=== PATIENT | female | born 1935 | race Caucasian/White ===

== ENCOUNTER → 2017-07-04 | Outpatient (REF) | payer MEDICARE, OTHER ==
[2017-07-04 17:07] LABS: HEMATOCRIT 31.4 % (36.0-47.0); HEMOGLOBIN 10.9 g/dl (12.0-16.0); MEAN CORPUSCULAR HEMOGLOBIN 30.5 pg (27.0-33.0); MEAN CORPUSCULAR HGB CONC 34.7 g/dl (32.0-36.5); PLATELET COUNT, AUTOMATED 139 10^3/uL (150-450); RED BLOOD COUNT 3.57 10^6/uL (4.00-5.40); WHITE BLOOD COUNT 3.7 10^3/uL (4.0-10.0)
[2017-07-04 17:10] LABS: ADD MANUAL DIFFER YES; DIFF SLIDE NUMBER 247; POSITIVE MORPH POS FLAG
[2017-07-04 17:37] LABS: ANION GAP 6 MEQ/L (8-16); BLOOD UREA NITROGEN 11 MG/DL (7-18); CALCIUM LEVEL 8.4 MG/DL (8.8-10.2); CARBON DIOXIDE LEVEL 29 MEQ/L (21-32); CHLORIDE LEVEL 95 MEQ/L (98-107); CREATININE FOR GFR 0.43 MG/DL (0.55-1.30); GLOMERULAR FILTRATION RATE > 60.0 (>32); GLUCOSE, FASTING 165 MG/DL (70-100); POTASSIUM SERUM 4.7 MEQ/L (3.5-5.1); SODIUM LEVEL 130 MEQ/L (136-145)
[2017-07-04 20:11] LABS: ATYPICAL LYMPH 1 % (0-5); EOSINOPHILS 1 % (0-5); LYMPHOCYTES 21 % (16-52); MONOCYTES 6 % (0-8); NEUTROPHILS 71 % (35-75)
[2017-07-04 20:12] LABS: BURR CELLS 1+
[2017-07-04 20:13] LABS: PLATELET ESTIMATE DECREASED (NORMAL)
== END ==
LOC: M SFHCLERA 12:41
DX: R19.7 Diarrhea, unspecified (principal); T30.0 Burn of unspecified body region, unspecified degree
CPT/HCPCS: 80048

== ENCOUNTER → 2017-07-11 | Outpatient (REF) | payer MEDICARE, OTHER ==
[2017-07-11 17:05] LABS: ANION GAP 6 MEQ/L (8-16); BLOOD UREA NITROGEN 22 MG/DL (7-18); CALCIUM LEVEL 9.2 MG/DL (8.8-10.2); CARBON DIOXIDE LEVEL 31 MEQ/L (21-32); CHLORIDE LEVEL 96 MEQ/L (98-107); CREATININE FOR GFR 0.55 MG/DL (0.55-1.30); GLOMERULAR FILTRATION RATE > 60.0 (>32); GLUCOSE, FASTING 139 MG/DL (70-100); POTASSIUM SERUM 4.8 MEQ/L (3.5-5.1); SODIUM LEVEL 133 MEQ/L (136-145)
[2017-07-11 17:08] LABS: BASO % 0.5 % (0.0-1.0); EOS % 0.4 % (0.0-3.0); HEMATOCRIT 35.2 % (36.0-47.0); HEMOGLOBIN 11.9 g/dl (12.0-16.0); IMMATURE GRANULOCYTE % 0.4 % (0-3.0); LYMPH # 1.1 10^3/uL (1.5-4.5); LYMPH % 14.2 % (24.0-44.0); MEAN CORPUSCULAR HEMOGLOBIN 30.7 pg (27.0-33.0); MEAN CORPUSCULAR HGB CONC 33.8 g/dl (32.0-36.5); MEAN CORPUSCULAR VOLUME 90.7 fl (80.0-96.0); MONO # 0.6 10^3/uL (0.0-0.8); MONO % 7.5 % (0.0-5.0); NEUTROPHILS # 5.9 10^3/uL (1.8-7.7); PLATELET COUNT, AUTOMATED 310 10^3/uL (150-450); RED BLOOD COUNT 3.88 10^6/uL (4.00-5.40); RED CELL DISTRIBUTION WIDTH 12.3 % (11.5-14.5); WHITE BLOOD COUNT 7.6 10^3/uL (4.0-10.0)
== END ==
LOC: M SFHCLERA 16:07
DX: T30.0 Burn of unspecified body region, unspecified degree (principal); R19.7 Diarrhea, unspecified
CPT/HCPCS: 80048

== ENCOUNTER → 2017-08-20 | Outpatient (REF) | payer MEDICARE, OTHER ==
[2017-08-20 17:29] LABS: ESTIMATED AVERAGE GLUCOSE 160 MG/DL (60-110); HEMOGLOBIN A1c 7.2 %
[2017-08-20 17:45] LABS: CHOLESTEROL LEVEL 137 MG/DL (<200); CHOLESTEROL RISK RATIO 3.186 (<5); HDL CHOLESTEROL 43 MG/DL (>40); NON-HDL-C 94 MG/DL; TRIGLYCERIDES LEVEL 140 MG/DL (<150)
[2017-08-20 17:48] LABS: CREATININE, URINE 32.9 MG/DL; MALB URINE SIEMENS 5.7 MG/L; MAU/CREAT RATIO 17.3 MCG/MG (0.0-30.0)
== END ==
LOC: M SFHCLERA 14:18
DX: E11.65 Type 2 diabetes mellitus with hyperglycemia (principal)
CPT/HCPCS: 83036

== ENCOUNTER → 2018-02-18 | Outpatient (REF) | payer MEDICARE, OTHER ==
[2018-02-18 21:08] LABS: ESTIMATED AVERAGE GLUCOSE 157 MG/DL (60-110); HEMOGLOBIN A1c 7.1 %
== END ==
LOC: M SFHCLERA 15:10
DX: E11.39 Type 2 diabetes mellitus with other diabetic ophthalmic complication (principal); Z23 Encounter for immunization
CPT/HCPCS: 83036

== ENCOUNTER → 2018-05-21 | Outpatient (REF) | payer MEDICARE, OTHER ==
[~2018-05-21] MED LIST: FURO20TA2 PO; PRAV10TA4 PO
[2018-05-21 20:31] LABS: BLOOD UREA NITROGEN 25 MG/DL (7-18); CALCIUM LEVEL 8.6 MG/DL (8.8-10.2); CARBON DIOXIDE LEVEL 28 MEQ/L (21-32); CHLORIDE LEVEL 103 MEQ/L (98-107); CREATININE FOR GFR 0.49 MG/DL (0.55-1.30); GLOMERULAR FILTRATION RATE > 60.0 (>32); GLUCOSE, FASTING 165 MG/DL (70-100); POTASSIUM SERUM 4.5 MEQ/L (3.5-5.1); SODIUM LEVEL 140 MEQ/L (136-145)
== END ==
LOC: M SFHCLERA 15:05
PROVIDERS: ATTEND Family Medicine
DX: I10 Essential (primary) hypertension (principal)

== ENCOUNTER 2018-06-17 17:52 | Emergency (ER) | payer MEDICARE, OTHER, MEDICAID ==
[2018-06-17] MEDS ORDERED: ASPI81TA85 PO (18:10)
[2018-06-17 18:12] VITALS: BP 157/70
--- NOTE | 2018-06-17 19:25 | REP ---
LUMBAR SPINE, FIVE VIEWS: HISTORY: Trauma. There is no acute fracture. The lumbar intervertebral discs are decreased in height consistent with disc degeneration. Osteophytes are present throughout the lumbar spine. There is sclerosis of the L3-4 through L5-S1 facets. There are 5 mm of grade 1 spondylolisthesis of L3 on 4. The bony structure is osteopenic. A calcification is present in the pelvis, likely representing a calcified uterine fibroid. IMPRESSION:Degenerative change as described above. Electronically Signed by Jonathan Llamas MD 06/17/2018 07:31 P
--- NOTE | 2018-06-17 19:27 | REP ---
RIGHT HIP, AP PELVIS, THREE VIEWS: HISTORY: Trauma. There is no acute fracture or dislocation. There is mild narrowing of the joint spaces with associated sclerosis. The bony structure is osteopenic. A calcification is present in the pelvis likely representing a calcified uterine fibroid. IMPRESSION:Degenerative change as described above. Electronically Signed by Jonathan Llamas MD 06/17/2018 07:31 P
--- NOTE | 2018-06-17 19:50 | REP ---
Right shoulder are three views History: Trauma There is no acute fracture or dislocation. There is marked narrowing of the joint spaces. Osteophytes are present at the acromioclavicular joint and on the distal superior acromion. The bony structure is osteopenic. Impression: There is no acute fracture or dislocation. Electronically Signed by Jonathan Llamas MD 06/17/2018 07:41 P
== END 2018-06-17 21:09 | disposition home or self-care (01) ==
LOC: EDBD 17:52 → M ED 17:52
DX: S40.011A Contusion of right shoulder, initial encounter (principal); W19.XXXA Unspecified fall, initial encounter; Y92.019 Unspecified place in single-family (private) house as the place of occurrence of the external cause

== ENCOUNTER 2018-06-20 16:03 | Emergency (ER) | payer MEDICARE, OTHER, MEDICAID ==
[~2018-06-20] VITALS: Ht 144.8 cm; Wt 65.9 kg
[~2018-06-20 16:03] MED LIST changes: +ASPI81TA85 PO
[2018-06-20] MEDS ORDERED: FURO20TA2 PO (16:39)
[2018-06-20] MEDS ORDERED: MAGN64TASA PO (16:39)
[2018-06-20] MEDS ORDERED: EYE5SOL OP (16:39)
[2018-06-20] MEDS ORDERED: CENT1TAB PO (16:39)
[2018-06-20] MEDS ORDERED: ZYRT10CA PO (16:39)
[2018-06-20] MEDS ORDERED: OMEGCAP9 PO (16:39)
[2018-06-20] MEDS ORDERED: SUPETAB25 PO (16:39)
[2018-06-20] MEDS ORDERED: VITA200038 PO (16:39)
[2018-06-20] MEDS ORDERED: PRAV10TA3 PO (16:39)
[2018-06-20] MEDS ORDERED: NIACCAP PO (16:39)
[2018-06-20] MEDS ORDERED: COLA100C5 PO (16:39)
[2018-06-20] MEDS ORDERED: PROBCAP14 PO (16:39)
--- NOTE | 2018-06-20 17:30 | REP ---
CHEST, TWO VIEWS: Two views of the chest are performed and compared to prior study of 10/20/2010. There is chronic interstitial prominence without evidence of infiltrate. The heart is normal in size. There is tortuosity of the thoracic aorta. Mediastinal silhouette is unchanged. There are degenerative changes of the spine without compression fracture. IMPRESSION: Mild chronic findings without evidence of acute pulmonary disease. Electronically Signed by Mario Alberto Parra MD 06/24/2018 08:42 P
[2018-06-20 17:34] LABS: HEMATOCRIT 34.9 % (36.0-47.0); HEMOGLOBIN 11.8 g/dl (12.0-15.5); MEAN CORPUSCULAR HGB CONC 33.8 g/dl (32.0-36.5); MEAN CORPUSCULAR VOLUME 88.8 fl (80.0-96.0); PLATELET COUNT, AUTOMATED 234 10^3/uL (150-450); RED BLOOD COUNT 3.93 10^6/uL (4.00-5.40); WHITE BLOOD COUNT 6.7 10^3/uL (4.0-10.0)
[2018-06-20 17:49] LABS: BLOOD UREA NITROGEN 18 MG/DL (7-18); CALCIUM LEVEL 9.1 MG/DL (8.8-10.2); CARBON DIOXIDE LEVEL 28 MEQ/L (21-32); CHLORIDE LEVEL 99 MEQ/L (98-107); CREATININE FOR GFR 0.42 MG/DL (0.55-1.30); GLOMERULAR FILTRATION RATE > 60.0 (>32); GLUCOSE, FASTING 151 MG/DL (70-100); POTASSIUM SERUM 4.4 MEQ/L (3.5-5.1); SODIUM LEVEL 134 MEQ/L (136-145)
[2018-06-20 20:00] VITALS: BP 136/62
--- NOTE | 2018-06-21 19:29 | ECGEPIP ---
Stationary ECG Study [facility] - ED Test Date: 2018-06-20 Pat Name: ARACELI LUNA Department: Room: - Gender: F Manager Latin: CHERYL : 1935 Requested By: BRITTANIE MAXWELL Order Number: [id number] Reading MD: Araceli Weaver Measurements Intervals Vivian Rate: 78 P: 46 SD: 170 QRS: -30 QRSD: 89 T: 5 QT: 394 QTc: 449 Interpretive Statements SINUS RHYTHM BORDERLINE LEFT AXIS DEVIATION POSSIBLE INFERIOR INFARCT OLD NSTTW ABNORMALITY NO PRIOR FOR COMPARISON Electronically Signed On 06-21-2018 19:29:05 EST by Araceli Weaver
== END 2018-06-20 20:19 | disposition home or self-care (01) ==
LOC: M ED 16:03
DX: R42 Dizziness and giddiness (principal)

== ENCOUNTER → 2018-07-09 | Outpatient (CLI) | payer MEDICARE, OTHER, MEDICAID ==
[~2018-07-09] MED LIST changes: +CENT1TAB PO; +COLA100C5 PO; +EYE5SOL OP; +MAGN64TASA PO; +NIACCAP PO; +OMEGCAP9 PO; +PRAV10TA3 PO; +PROBCAP14 PO; +SUPETAB25 PO; +VITA200038 PO; +ZYRT10CA PO
--- NOTE | 2018-07-16 10:43 | DEXA ---
AP SPINE L1 - L4 1.478 2.3 4.2 LT FEMUR TOTAL 0.839 -1.3 0.9 LT NECK 0.970 -0.5 1.8 RT FEMUR TOTAL 0.753 -2.0 0.2 RT NECK 0.888 -1.1 1.3 TOTAL BODY TOTAL RIGHT RADIUS 33% 0.699 -2.0 1.0 COMMENTS: Normal bone densitometry of the spine. Normal bone densitometry of the left hip. There is low bone density of the right hip. FOLLOW-UP: Recommendation for the next bone density exam: 2 years. RITA
== END ==
LOC: M WHC 11:22
PROVIDERS: ATTEND Family Medicine
DX: Z13.820 Encounter for screening for osteoporosis (principal); M85.9 Disorder of bone density and structure, unspecified

== ENCOUNTER → 2018-09-02 | Outpatient (REF) | payer MEDICARE, OTHER ==
[2018-09-02 13:10] LABS: BLOOD UREA NITROGEN 25 MG/DL (7-18); CALCIUM LEVEL 8.7 MG/DL (8.8-10.2); CARBON DIOXIDE LEVEL 31 MEQ/L (21-32); CHLORIDE LEVEL 102 MEQ/L (98-107); CHOLESTEROL LEVEL 125 MG/DL (<200); CHOLESTEROL RISK RATIO 2.403 (<5); CREATININE FOR GFR 0.48 MG/DL (0.55-1.30); GLOMERULAR FILTRATION RATE > 60.0 (>32); GLUCOSE, FASTING 181 MG/DL (70-100); HDL CHOLESTEROL 52 MG/DL (>40); LDL CHOLESTEROL 60 MG/DL (<100); NON-HDL-C 73 MG/DL; POTASSIUM SERUM 4.5 MEQ/L (3.5-5.1); SODIUM LEVEL 137 MEQ/L (136-145); TRIGLYCERIDES LEVEL 63 MG/DL (<150)
[2018-09-02 13:50] LABS: CREATININE, URINE 31.1 MG/DL; MALB URINE SIEMENS 5.1 MG/L; MAU/CREAT RATIO 16.3 MCG/MG (0.0-30.0)
[2018-09-02 14:10] LABS: HEMOGLOBIN A1c 7.6 %
== END ==
LOC: M SFHCLERA 09:50
PROVIDERS: ATTEND Family Medicine
DX: E11.39 Type 2 diabetes mellitus with other diabetic ophthalmic complication (principal)
CPT/HCPCS: 80048; 80061; 82043; 83036; G0463

== ENCOUNTER → 2018-12-02 | Outpatient (REF) | payer MEDICARE, OTHER ==
[2018-12-02 17:09] LABS: BASO % 0.7 % (0.0-1.0); EOS % 0.7 % (0.0-3.0); HEMATOCRIT 32.8 % (36.0-47.0); LYMPH % 18.8 % (24.0-44.0); MEAN CORPUSCULAR HEMOGLOBIN 31.8 pg (27.0-33.0); MEAN CORPUSCULAR HGB CONC 33.5 g/dl (32.0-36.5); MEAN CORPUSCULAR VOLUME 94.8 fl (80.0-96.0); MONO # 0.4 10^3/uL (0.0-0.8); NEUTROPHILS % 71.6 % (36.0-66.0); PLATELET COUNT, AUTOMATED 194 10^3/uL (150-450); RED BLOOD COUNT 3.46 10^6/uL (4.00-5.40); WHITE BLOOD COUNT 5.5 10^3/uL (4.0-10.0)
[2018-12-02 17:15] LABS: BLOOD UREA NITROGEN 25 MG/DL (7-18); CALCIUM LEVEL 8.6 MG/DL (8.8-10.2); CARBON DIOXIDE LEVEL 29 MEQ/L (21-32); CHLORIDE LEVEL 108 MEQ/L (98-107); CREATININE FOR GFR 0.55 MG/DL (0.55-1.30); GLOMERULAR FILTRATION RATE > 60.0 (>32); GLUCOSE, FASTING 128 MG/DL (70-100); HEMOGLOBIN A1c 7.4 %; POTASSIUM SERUM 4.4 MEQ/L (3.5-5.1); SODIUM LEVEL 142 MEQ/L (136-145)
== END ==
LOC: M SFHCLERA 13:42
PROVIDERS: ATTEND Family Medicine
DX: E11.39 Type 2 diabetes mellitus with other diabetic ophthalmic complication (principal); I10 Essential (primary) hypertension; D64.9 Anemia, unspecified
CPT/HCPCS: 80048; 83036; 85025; G0463

== ENCOUNTER → 2019-01-01 | Outpatient (CLI) | payer MEDICARE, OTHER ==
[2019-01-02 10:06] LABS: CA 125 9.3 U/ML (<30.2); CA19-9 TUMOR MARKER,CARBOHYDRA 10.5 U/ML (<35.0)
== END ==
LOC: M WUC 10:11
PROVIDERS: ATTEND Obstetrics & Gynecology
DX: R19.09 Other intra-abdominal and pelvic swelling, mass and lump (principal)

== ENCOUNTER → 2019-03-03 | Outpatient (REF) | payer MEDICARE, OTHER ==
[2019-03-03 16:28] LABS: BASO % 0.3 % (0.0-1.0); EOS # 0.1 10^3/uL (0.0-0.5); EOS % 1.2 % (0.0-3.0); HEMATOCRIT 33.5 % (36.0-47.0); HEMOGLOBIN 11.2 g/dl (12.0-15.5); LYMPH % 16.2 % (24.0-44.0); MEAN CORPUSCULAR HGB CONC 33.4 g/dl (32.0-36.5); MEAN CORPUSCULAR VOLUME 95.7 fl (80.0-96.0); MONO # 0.5 10^3/uL (0.0-0.8); MONO % 7.8 % (0.0-5.0); NEUTROPHILS # 4.3 10^3/uL (1.5-8.5); PLATELET COUNT, AUTOMATED 220 10^3/uL (150-450); WHITE BLOOD COUNT 5.9 10^3/uL (4.0-10.0)
[2019-03-03 17:00] LABS: BLOOD UREA NITROGEN 26 MG/DL (7-18); CALCIUM LEVEL 8.8 MG/DL (8.8-10.2); CARBON DIOXIDE LEVEL 32 MEQ/L (21-32); CHLORIDE LEVEL 101 MEQ/L (98-107); CREATININE FOR GFR 0.51 MG/DL (0.55-1.30); FERRITIN 155 NG/ML (8-252); GLOMERULAR FILTRATION RATE > 60.0 (>32); GLUCOSE, FASTING 132 MG/DL (70-100); HEMOGLOBIN A1c 7.2 %; IRON (FE) 32 UG/DL (50-170); POTASSIUM SERUM 4.3 MEQ/L (3.5-5.1); SODIUM LEVEL 138 MEQ/L (136-145); TOTAL IRON BINDING CAPACITY 247 UG/DL (250-450)
[2019-03-03 19:24] LABS: FOLATE 23.9 NG/ML; VITAMIN B12 LEVEL 269 PG/ML
== END ==
LOC: M SFHCLERA 13:58
PROVIDERS: ATTEND Family Medicine
DX: E11.39 Type 2 diabetes mellitus with other diabetic ophthalmic complication (principal); I10 Essential (primary) hypertension; D64.9 Anemia, unspecified
CPT/HCPCS: 80048; 82607; 82728; 82746; 83036; 83550; 85025; 90682; G0008; G0463

== ENCOUNTER 2019-07-10 16:47 | Emergency (ER) | payer MEDICARE, OTHER ==
[~2019-07-10] VITALS: Ht 144.8 cm; Wt 66.8 kg
[~2019-07-10 16:47] MED LIST changes: -EYE5SOL OP; +TETR15DR2 OP
[2019-07-10] MEDS ORDERED: CYAN100050 (17:38)
[2019-07-10] MEDS ORDERED: PRAV10TA4 (17:38)
[2019-07-10] MEDS ORDERED: METF-791 (17:38)
[2019-07-10] MEDS ORDERED: ALL10TAB29 PO (17:38)
[2019-07-10] MEDS ORDERED: ASPI81TA85 PO (17:38)
[2019-07-10] MEDS ORDERED: FERR325T18 (17:38)
--- NOTE | 2019-07-10 18:08 | REPVR ---
PROCEDURE INFORMATION: Exam: CT Head Without Contrast Exam date and time: 07/10/2019 5:14 PM Age: 84 years old Clinical indication: Injury or trauma; Fall; Initial encounter; Concussion / head injury TECHNIQUE: Imaging protocol: Computed tomography of the head without contrast. Radiation optimization: All CT scans at this facility use at least one of these dose optimization techniques: automated exposure control; mA and/or kV adjustment per patient size (includes targeted exams where dose is matched to clinical indication); or iterative reconstruction. COMPARISON: No relevant prior studies available. FINDINGS: Brain: There are periventricular foci of white matter hypodensity, likely representing small vessel ischemic disease in a patient this age. Additional hypodensity is identified within the anterior limb of the right internal capsule, suggestive of chronic ischemic change. The acuity of the white matter disease is indeterminate. The white-medina differentiation is preserved demonstrating no acute territorial type infarct. No acute intracranial hemorrhage is visualized. Midline shift: There is no midline shift. Ventricles: There is mild to moderate prominence of the ventricles and sulci, compatible with atrophy. Bones/joints: The calvarium demonstrates no evidence for a depressed fracture. Sinuses: Visualized sinuses are unremarkable. No fluid levels. Mastoid air cells: No mastoid effusion. Orbits: Bilateral orbital lens implants. Soft tissues: Soft tissue swelling/hematoma of the left occipital scalp. Vasculature: Intracranial atherosclerosis visualized. IMPRESSION: 1. No acute intracranial hemorrhage or acute territorial type infarct. 2. Soft tissue swelling/hematoma of the left occipital scalp. 3. Mild to moderate atrophy. 4. There are periventricular foci of white matter hypodensity, likely representing small vessel ischemic disease in a patient this age. Additional hypodensity is identified within the anterior limb of the right internal capsule, suggestive of chronic ischemic change. Electronically signed by: Kirby Steinberg On 07/10/2019 18:08:07 PM
--- NOTE | 2019-07-10 18:22 | REPVR ---
PROCEDURE INFORMATION: Exam: CT Cervical Spine Without Contrast Exam date and time: 07/10/2019 5:14 PM Age: 84 years old Clinical indication: Injury or trauma; Fall; Initial encounter; Blunt trauma; Additional info: Head injury TECHNIQUE: Imaging protocol: Computed tomography images of the cervical spine without contrast. Radiation optimization: All CT scans at this facility use at least one of these dose optimization techniques: automated exposure control; mA and/or kV adjustment per patient size (includes targeted exams where dose is matched to clinical indication); or iterative reconstruction. COMPARISON: No relevant prior studies available. FINDINGS: Vertebrae: No acute cervical spine fracture. The occipital condyles appear intact. Bilateral TMJ arthropathy. Mild anterolisthesis of C4 on C5, C5 on C6, C6 on C7, C7 on T1, and T1 on T2. There is mild anterior wedging of the T2 vertebral body with sclerotic change, consistent with a mild compression fracture/deformity, which is likely chronic. Erosive changes are identified of the left side of the dens process and adjacent C1 lateral mass. This is likely secondary to arthropathy. Advanced arthropathy is identified at the left C1-C2 articulation. Hypertrophic degenerative changes are identified at the junction of the anterior C1 arch and dens process. Fusion of the facets is identified from C2-C3 to C5-C6 on the left side and C2-C3 and C5-C6 on the right side. Discs/Spinal canal/Neural foramina: Spondylosis is visualized at multiple cervical levels. Facet arthropathy is identified at multiple cervical levels. Varying degrees of neural foraminal narrowing are identified at multiple cervical levels. Mild narrowing of the thecal sac is identified at T1-2. Other bones/joints: Diffuse advanced osteopenia. Soft tissues: No significant prevertebral soft tissue swelling. Thyroid: A subcentimeter nodule is identified within the left thyroid lobe. Lungs: Mild dependent consolidation is identified within the lungs bilaterally, suggestive of atelectatic change or infiltrates. Lung contusion cannot be excluded in the setting of trauma. Vasculature: Atherosclerotic changes. IMPRESSION: 1. No acute cervical spine fracture. 2. Mild anterolisthesis of C4 on C5, C5 on C6, C6 on C7, C7 on T1, and T1 on T2. 3. There is mild anterior wedging of the T2 vertebral body with sclerotic change, consistent with a mild compression fracture/deformity, which is likely chronic. 4. Erosive changes are identified of the left side of the dens process and adjacent C1 lateral mass. This is likely secondary to arthropathy. Advanced arthropathy is identified at the left C1-C2 articulation. 5. Spondylosis is visualized at multiple cervical levels. 6. Mild narrowing of the thecal sac is identified at T1-2. 7. Mild dependent consolidation is identified within the lungs bilaterally, suggestive of atelectatic change or infiltrates. Lung contusion cannot be excluded in the setting of trauma. If there is a clinical history of chest trauma, a chest CT with contrast is suggested. 8. A subcentimeter nodule is identified within the left thyroid lobe. COMMENTS: Consistent with the [employer]'s Incidental Findings Committee white paper (J Am Jamie Radiol 2015): In patients aged 35 years and older with an incidental thyroid nodule equal to or greater than 1.[address], MRI or extrathyroidal US, further evaluation with dedicated thyroid US is recommended for patients with normal life expectancy and without comorbidities. For smaller nodules without suspicious features, no further evaluation or follow up is recommended. Electronically signed by: Kirby Steinberg On 07/10/2019 18:22:21 PM
[2019-07-10 19:38] VITALS: BP 155/63
--- NOTE | 2019-07-14 13:17 | ED PDOC ---
Post-Departure Follow-Up dr craig faxed formal report of ct cspine for fu Abhijeet Lopez MD Jul 14, 2019 13:17
== END 2019-07-11 00:01 | disposition home or self-care (01) ==
LOC: EDBD 16:47 → M ED 16:47
DX: S00.03XA Contusion of scalp, initial encounter (principal); W01.198A Fall on same level from slipping, tripping and stumbling with subsequent striking against other object, initial encounter; Y92.098 Other place in other non-institutional residence as the place of occurrence of the external cause; Y93.01 Activity, walking, marching and hiking; I11.0 Hypertensive heart disease with heart failure; I50.9 Heart failure, unspecified; E11.9 Type 2 diabetes mellitus without complications; E78.5 Hyperlipidemia, unspecified; D64.9 Anemia, unspecified; M10.9 Gout, unspecified; Z86.718 Personal history of other venous thrombosis and embolism; Z88.5 Allergy status to narcotic agent; Z91.048 Other nonmedicinal substance allergy status; Z79.899 Other long term (current) drug therapy; Z79.82 Long term (current) use of aspirin; Z79.84 Long term (current) use of oral hypoglycemic drugs

== ENCOUNTER → 2019-09-02 | Outpatient (REF) | payer MEDICARE, OTHER ==
[~2019-09-02] MED LIST changes: -ASPI81TA85 PO; +ASPI81TA86 PO; +CETI-24 PO; +CYAN100050; +FERR325T18; +METF-838 PO; +PRAV10TA4; +TETR15DR16 OP; -TETR15DR2 OP
[2019-09-02 16:41] LABS: BASO % 0.5 % (0.0-1.0); EOS % 0.5 % (0.0-3.0); HEMATOCRIT 33.2 % (36.0-47.0); HEMOGLOBIN 11.1 g/dl (12.0-15.5); LYMPH # 1.1 10^3/uL (1.5-5.0); LYMPH % 19.7 % (24.0-44.0); MEAN CORPUSCULAR HEMOGLOBIN 32.1 pg (27.0-33.0); MEAN CORPUSCULAR HGB CONC 33.4 g/dl (32.0-36.5); MONO # 0.4 10^3/uL (0.0-0.8); NEUTROPHILS % 72.1 % (36.0-66.0); PLATELET COUNT, AUTOMATED 223 10^3/uL (150-450); RED BLOOD COUNT 3.46 10^6/uL (4.00-5.40); WHITE BLOOD COUNT 5.6 10^3/uL (4.0-10.0)
[2019-09-02 17:09] LABS: BLOOD UREA NITROGEN 27 MG/DL (7-18); CALCIUM LEVEL 9.2 MG/DL (8.8-10.2); CARBON DIOXIDE LEVEL 28 MEQ/L (21-32); CHLORIDE LEVEL 106 MEQ/L (98-107); GLOMERULAR FILTRATION RATE > 60.0 (>32); GLUCOSE, FASTING 133 MG/DL (70-100); POTASSIUM SERUM 4.5 MEQ/L (3.5-5.1); SODIUM LEVEL 139 MEQ/L (136-145)
[2019-09-02 17:16] LABS: CREATININE, URINE 51.8 MG/DL; MALB URINE SIEMENS 8.3 MG/L
[2019-09-02 17:41] LABS: HEMOGLOBIN A1c 7.8 %
== END ==
LOC: M SFHCLERA 12:22
PROVIDERS: ATTEND Family Medicine
DX: E11.9 Type 2 diabetes mellitus without complications (principal)
CPT/HCPCS: 80048; 82043; 83036; 85025; G0463

== ENCOUNTER → 2020-05-17 | Outpatient (CLI) | payer MEDICARE, OTHER ==
[2020-05-17 18:13] LABS: BASO # 0.1 10^3/uL (0.0-0.2); BASO % 0.8 % (0.0-1.0); EOS # 0.1 10^3/uL (0.0-0.5); EOS % 1.4 % (0.0-3.0); HEMATOCRIT 37.8 % (36.0-47.0); HEMOGLOBIN 12.5 g/dl (12.0-15.5); LYMPH # 1.3 10^3/uL (1.5-5.0); LYMPH % 19.9 % (24.0-44.0); MEAN CORPUSCULAR HEMOGLOBIN 32.7 pg (27.0-33.0); MEAN CORPUSCULAR HGB CONC 33.1 g/dl (32.0-36.5); MONO # 0.5 10^3/uL (0.0-0.8); NEUTROPHILS # 4.6 10^3/uL (1.5-8.5); NEUTROPHILS % 69.6 % (36.0-66.0); PLATELET COUNT, AUTOMATED 205 10^3/uL (150-450); RED BLOOD COUNT 3.82 10^6/uL (4.00-5.40); WHITE BLOOD COUNT 6.5 10^3/uL (4.0-10.0)
[2020-05-17 18:46] LABS: HEMOGLOBIN A1c 7.1 %
[2020-05-17 18:48] LABS: BLOOD UREA NITROGEN 24 MG/DL (7-18); CARBON DIOXIDE LEVEL 27 MEQ/L (21-32); CHLORIDE LEVEL 106 MEQ/L (98-107); CHOLESTEROL LEVEL 134 MG/DL (<200); CREATININE FOR GFR 0.55 MG/DL (0.55-1.30); GLOMERULAR FILTRATION RATE > 60.0 (>32); GLUCOSE, FASTING 134 MG/DL (70-100); HDL CHOLESTEROL 58 MG/DL (>40); LDL CHOLESTEROL 65 MG/DL (<100); NON-HDL-C 76 MG/DL; POTASSIUM SERUM 4.4 MEQ/L (3.5-5.1); SODIUM LEVEL 137 MEQ/L (136-145); TRIGLYCERIDES LEVEL 55 MG/DL (<150)
[2020-05-17 19:00] LABS: CREATININE, URINE 36.5 MG/DL; MAU/CREAT RATIO 16.4 MCG/MG (0.0-30.0)
== END ==
LOC: M LAB 17:35
PROVIDERS: ATTEND Family Medicine
DX: E11.9 Type 2 diabetes mellitus without complications (principal)
CPT/HCPCS: 36415; 80048; 80061; 82043; 83036; 85025; G0463

== ENCOUNTER → 2021-08-31 | Outpatient (CLI) | payer MEDICARE, OTHER ==
[~2021-08-31] MED LIST changes: -TETR15DR16 OP; +TETR15DR2 OP
[2021-08-31 10:23] LABS: BASO % 0.7 % (0.0-1.0); EOS % 0.7 % (0.0-3.0); HEMATOCRIT 35.3 % (36.0-47.0); HEMOGLOBIN 12.3 g/dl (12.0-15.5); LYMPH % 17.3 % (24.0-44.0); MEAN CORPUSCULAR HEMOGLOBIN 33.3 pg (27.0-33.0); MEAN CORPUSCULAR HGB CONC 34.8 g/dl (32.0-36.5); MEAN CORPUSCULAR VOLUME 95.7 fl (80.0-96.0); MONO # 0.5 10^3/uL (0.0-0.8); MONO % 7.5 % (2.0-8.0); NEUTROPHILS # 4.4 10^3/uL (1.5-8.5); NEUTROPHILS % 73.5 % (36.0-66.0); PLATELET COUNT, AUTOMATED 202 10^3/uL (150-450); RED BLOOD COUNT 3.69 10^6/uL (4.00-5.40)
[2021-08-31 10:48] LABS: HEMOGLOBIN A1c 8.3 %
[2021-08-31 10:56] LABS: BLOOD UREA NITROGEN 22 MG/DL (7-18); CALCIUM LEVEL 9.3 MG/DL (8.8-10.2); CARBON DIOXIDE LEVEL 30 MEQ/L (21-32); CHLORIDE LEVEL 102 MEQ/L (98-107); CREATININE FOR GFR 0.65 MG/DL (0.55-1.30); FERRITIN 330 NG/ML (8-252); GLOMERULAR FILTRATION RATE > 60.0 (>32); GLUCOSE, FASTING 223 MG/DL (70-100); IRON (FE) 69 UG/DL (50-170); PERCENT SATURATION 25.7 % (13.2-45.0); SODIUM LEVEL 134 MEQ/L (136-145); TOTAL IRON BINDING CAPACITY 269 UG/DL (250-450)
== END ==
LOC: M PLALAB 08:59
PROVIDERS: ATTEND Family Medicine
DX: E11.9 Type 2 diabetes mellitus without complications (principal)

== ENCOUNTER 2021-12-01 20:03 | Emergency (ER) | payer MEDICARE, MEDICAID ==
[~2021-12-01] VITALS: Ht 144.8 cm; Wt 72.7 kg
[2021-12-01] MEDS ORDERED: AMPICILLIN SOD/SULBACTAM SOD 3 GM in D5W MINI-BAG PLUS 100 ML IV ONE (22:20)
[2021-12-01 22:24] LABS: BASO % 0.2 % (0.0-1.0); EOS # 0.1 10^3/uL (0.0-0.5); EOS % 0.7 % (0.0-3.0); HEMATOCRIT 34.9 % (36.0-47.0); LYMPH # 0.9 10^3/uL (1.5-5.0); MEAN CORPUSCULAR HEMOGLOBIN 32.5 pg (27.0-33.0); MEAN CORPUSCULAR HGB CONC 34.4 g/dl (32.0-36.5); MEAN CORPUSCULAR VOLUME 94.6 fl (80.0-96.0); MONO # 0.6 10^3/uL (0.0-0.8); MONO % 7.1 % (2.0-8.0); NEUTROPHILS # 6.9 10^3/uL (1.5-8.5); NEUTROPHILS % 80.7 % (36.0-66.0); PLATELET COUNT, AUTOMATED 216 10^3/uL (150-450); RED BLOOD COUNT 3.69 10^6/uL (4.00-5.40); WHITE BLOOD COUNT 8.6 10^3/uL (4.0-10.0)
[2021-12-01] MEDS ORDERED: AUGM500T34 PO (22:28)
[2021-12-01 22:43] LABS: BLOOD UREA NITROGEN 18 MG/DL (7-18); CARBON DIOXIDE LEVEL 23 MEQ/L (21-32); CHLORIDE LEVEL 101 MEQ/L (98-107); CREATININE FOR GFR 0.78 MG/DL (0.55-1.30); GLOMERULAR FILTRATION RATE > 60.0 (>32); GLUCOSE, FASTING 207 MG/DL (70-100); POTASSIUM SERUM 4.3 MEQ/L (3.5-5.1); SODIUM LEVEL 133 MEQ/L (136-145)
[2021-12-01 23:34] VITALS: BP 135/69
== END 2021-12-01 23:51 | disposition home or self-care (01) ==
LOC: M ED 20:03 → EDBD 20:03 → M ED 23:51
DX: L03.115 Cellulitis of right lower limb (principal); L03.116 Cellulitis of left lower limb; E11.9 Type 2 diabetes mellitus without complications; G14 Postpolio syndrome; Z90.710 Acquired absence of both cervix and uterus; Z88.6 Allergy status to analgesic agent; Z88.5 Allergy status to narcotic agent; Z88.8 Allergy status to other drugs, medicaments and biological substances; Z79.899 Other long term (current) drug therapy; Z79.84 Long term (current) use of oral hypoglycemic drugs; Z79.82 Long term (current) use of aspirin
CPT/HCPCS: 80048; 85025; 86140; 96365; 99284; J0295

== ENCOUNTER → 2021-12-21 | Outpatient (REF) | payer MEDICARE ==
[~2021-12-21] MED LIST changes: +AUGM500T34 PO
== END ==
LOC: M SFHCWAGY 13:05
PROVIDERS: ATTEND Advanced Practice Midwife
DX: R35.0 Frequency of micturition (principal)

== ENCOUNTER → 2022-04-04 | Outpatient (CLI) | payer MEDICARE, MEDICAID ==
[2022-04-04 14:54] LABS: ALBUMIN 3.8 G/DL (3.2-5.2); ALKALINE PHOSPHATASE 89 U/L (46-116); ALT/SGPT 17 U/L (7.0-40); AST/SGOT 17 U/L (<34); BILIRUBIN,TOTAL 0.3 MG/DL (0.3-1.2); BLOOD UREA NITROGEN 25 MG/DL (9-23); CALCIUM LEVEL 9.1 MG/DL (8.3-10.6); CARBON DIOXIDE LEVEL 29 MMOL/L (20-31); CHLORIDE LEVEL 98 MMOL/L (98-107); CHOLESTEROL LEVEL 141 MG/DL (<200); CHOLESTEROL RISK RATIO 3.53 (<5); CREATININE FOR GFR 0.51 MG/DL (0.55-1.30); GLOMERULAR FILTRATION RATE > 60.0 (>32); GLUCOSE, FASTING 229 MG/DL (74-106); HDL CHOLESTEROL 39.9 MG/DL (>40); LDL CHOLESTEROL 76.1 MG/DL (<100); NON-HDL-C 101 MG/DL; POTASSIUM SERUM 4.4 MMOL/L (3.5-5.1); SODIUM LEVEL 134 MMOL/L (136-145); TRIGLYCERIDES LEVEL 125 MG/DL (<150)
[2022-04-04 16:21] LABS: MALB URINE SIEMENS < 5.0 MG/DL; MAU/CREAT RATIO 19.2 MCG/MG (0.0-30.0)
[2022-04-04 19:55] LABS: HEMOGLOBIN A1c 8.6 % (4.0-6.0)
== END ==
LOC: M PLALAB 10:02
PROVIDERS: ATTEND Family Medicine
DX: E11.39 Type 2 diabetes mellitus with other diabetic ophthalmic complication (principal)

== ENCOUNTER → 2022-04-17 | Outpatient (CLI) | payer MEDICARE, MEDICAID | LOC: M WHC 10:47 | PROVIDERS: ATTEND Family Medicine | DX: M81.0 Age-related osteoporosis without current pathological fracture (principal) ==

== ENCOUNTER → 2023-05-03 | Outpatient (CLI) | payer MEDICARE, MEDICAID ==
[~2023-05-03] MED LIST changes: +CYAN-1; -CYAN100050
[2023-05-03 17:26] LABS: BASO % 0.3 % (0.0-1.0); EOS % 0.5 % (0.0-3.0); HEMATOCRIT 33.2 % (36.0-47.0); HEMOGLOBIN 11.3 g/dl (12.0-15.5); MEAN CORPUSCULAR HEMOGLOBIN 32.3 pg (27.0-33.0); MEAN CORPUSCULAR VOLUME 94.9 fl (80.0-96.0); MONO # 0.5 10^3/uL (0.0-0.8); MONO % 5.4 % (2.0-8.0); NEUTROPHILS # 7.2 10^3/uL (1.5-8.5); NEUTROPHILS % 82.6 % (36.0-66.0); PLATELET COUNT, AUTOMATED 181 10^3/uL (150-450); WHITE BLOOD COUNT 8.7 10^3/uL (4.0-10.0)
[2023-05-03 17:50] LABS: FREE T4 1.11 NG/DL (0.89-1.76); HEMOGLOBIN A1c 8.9 % (4.0-6.0)
[2023-05-03 17:51] LABS: ALBUMIN 3.2 G/DL (3.2-5.2); ALKALINE PHOSPHATASE 84 U/L (46-116); ALT/SGPT 18 U/L (7.0-40); AST/SGOT 13 U/L (<34); BILIRUBIN,TOTAL 0.3 MG/DL (0.3-1.2); BLOOD UREA NITROGEN 23 MG/DL (9-23); CALCIUM LEVEL 8.9 MG/DL (8.3-10.6); CARBON DIOXIDE LEVEL 30 MMOL/L (20-31); CHLORIDE LEVEL 100 MMOL/L (98-107); CHOLESTEROL LEVEL 127 MG/DL (<200); CHOLESTEROL RISK RATIO 2.66 (<5); CREATININE FOR GFR 0.56 MG/DL (0.55-1.30); GLOMERULAR FILTRATION RATE > 60.0 (>32); GLUCOSE, FASTING 254 MG/DL (74-106); HDL CHOLESTEROL 47.6 MG/DL (>40); LDL CHOLESTEROL 62.6 MG/DL (<100); NON-HDL-C 79.4 MG/DL; POTASSIUM SERUM 5.1 MMOL/L (3.5-5.1); SODIUM LEVEL 134 MMOL/L (136-145); THYROID STIMULATING HORMONE 5.965 uIU/ML (0.55-4.78); TOTAL PROTEIN 6.5 G/DL (5.7-8.2); TRIGLYCERIDES LEVEL 84 MG/DL (<150)
== END ==
LOC: M PLALAB 15:26
PROVIDERS: ATTEND Family Medicine
DX: E11.9 Type 2 diabetes mellitus without complications (principal); E66.3 Overweight; E78.5 Hyperlipidemia, unspecified

== ENCOUNTER 2023-05-06 12:52 | Inpatient (IN) | payer MEDICARE, MEDICAID ==
[~2023-05-06] VITALS: Ht 144.8 cm; Wt 69.6 kg
[2023-05-06] MEDS ORDERED: ALEN70TA82 (13:34)
[2023-05-06] MEDS ORDERED: FERR325T19 (13:34)
[2023-05-06 15:07] LABS: HEMATOCRIT 31.8 % (36.0-47.0); HEMOGLOBIN 11.1 g/dl (12.0-15.5); MEAN CORPUSCULAR HEMOGLOBIN 32.9 pg (27.0-33.0); MEAN CORPUSCULAR HGB CONC 34.9 g/dl (32.0-36.5); MEAN CORPUSCULAR VOLUME 94.4 fl (80.0-96.0); PLATELET COUNT, AUTOMATED 179 10^3/uL (150-450); RED BLOOD COUNT 3.37 10^6/uL (4.00-5.40); WHITE BLOOD COUNT 7.7 10^3/uL (4.0-10.0)
[2023-05-06 15:18] LABS: ERYTHROCYTE SEDIMENTATION RATE 83 mm/hr (0-30)
[2023-05-06 15:39] LABS: ALBUMIN 2.7 G/DL (3.2-5.2); BILIRUBIN,DIRECT 0.2 MG/DL (<0.4); BILIRUBIN,TOTAL 0.4 MG/DL (0.3-1.2); TOTAL PROTEIN 6.1 G/DL (5.7-8.2)
[2023-05-06] MEDS ORDERED: VANCOMYCIN HCL 1,000 MG, VIAL MATE ADAPTER 1 EACH in D5W 250 ML IV SCH (16:25)
[2023-05-06 16:40] LABS: BASO % 0.3 % (0.0-1.0); LYMPH # 0.8 10^3/uL (1.5-5.0); LYMPH % 9.9 % (24.0-44.0); MONO # 0.7 10^3/uL (0.0-0.8); NEUTROPHILS # 6.2 10^3/uL (1.5-8.5); NEUTROPHILS % 80.5 % (36.0-66.0)
[2023-05-06 16:46] LABS: BLOOD UREA NITROGEN 21 MG/DL (9-23); CALCIUM LEVEL 8.4 MG/DL (8.3-10.6); CARBON DIOXIDE LEVEL 24 MMOL/L (20-31); CHLORIDE LEVEL 103 MMOL/L (98-107); CREATININE FOR GFR 0.48 MG/DL (0.55-1.30); GLOMERULAR FILTRATION RATE > 60.0 (>32); GLUCOSE, FASTING 343 MG/DL (74-106); MAGNESIUM LEVEL 1.9 MG/DL (1.8-2.4); POTASSIUM SERUM 4.6 MMOL/L (3.5-5.1); SODIUM LEVEL 133 MMOL/L (136-145)
[2023-05-06 16:47] LABS: ANTI-STREPTOLYSIN O QUANT 81.5 IU/ML (<195)
[2023-05-06] MEDS ORDERED: GLUCOSE 4GM CHEW TABLET PO PRN (16:50)
[2023-05-06] MEDS ORDERED: MOM 30ML SUSPENSION UDC PO PRN (16:50)
[2023-05-06] MEDS ORDERED: GLUCAGON INJ 1MG VIAL SC PRN (16:50)
[2023-05-06] MEDS ORDERED: DEXTROSE 50% 50ML SYRINGE IV PRN (16:50)
[2023-05-06] MEDS: INSULIN LISPRO (NovoLOG) PER UNIT SC SCH ×2 (17:30→22:03)
[2023-05-06] MEDS: PIPERACILLIN/TAZOBACTAM SOD 3.375 GM in D5W MINI-BAG PLUS 50 ML IV SCH (17:36)
[2023-05-06 17:43] LABS: PROCALCITONIN 0.19 ng/ml
[2023-05-06] MEDS ORDERED: ALEN70TA82 PO (18:06)
[2023-05-06] MEDS ORDERED: ASPI81TA26 PO (18:07)
[2023-05-06] MEDS ORDERED: B-12100021 PO (18:08)
[2023-05-06 18:11] VITALS: BP 131/64; TEMP 98.1; O2SAT 99
[2023-05-06] MEDS ORDERED: FURO20TA2 PO (18:13)
[2023-05-06] MEDS ORDERED: METF-838 PO (18:13)
[2023-05-06] MEDS ORDERED: MAGN64TA3 PO (18:13)
[2023-05-06] MEDS ORDERED: OMEGCAP4 PO (18:13)
[2023-05-06] MEDS ORDERED: FERR325T3 PO (18:13)
[2023-05-06] MEDS ORDERED: PRAV10TA3 PO (18:14)
[2023-05-06] MEDS ORDERED: EQL1CAP9 PO (18:15)
[2023-05-06] MEDS ORDERED: HOME MED LIST COMPLETE! XX SCH (18:20)
[2023-05-06] MEDS: LACTOBACILLUS ACIDOPHILUS CAP (BACID) PO SCH ×2 (19:39→22:02)
[2023-05-06] MEDS ORDERED: VANCOMYCIN HCL 750 MG, VIAL MATE ADAPTER 1 EACH in D5W 250 ML IV ONE ×2 (20:00→21:00)
[2023-05-06 20:17] VITALS: BP 137/69; TEMP 99.2; O2SAT 97
[2023-05-06] MEDS: ACETAMINOPHEN TAB 650MG DOSE (2X325MG) PO PRN (20:33)
[2023-05-06 21:12] LABS: VENOUS BASE EXCESS -0.8 (-2.0-2.0); VENOUS HCO3 22.2 MMOL/L (23.0-27.0); VENOUS O2 SATURATION 99.1 % (60.0-80.0); VENOUS PARTIAL PRESSURE CO2 31.3 mmHg (38.0-50.0); VENOUS PARTIAL PRESSURE O2 163.8 mmHg (30.0-50.0); VENOUS PH 7.469 UNITS (7.330-7.430); VENOUS STANDARD HCO3 23.8 MMOL/L; VENOUS TOTAL CO2 23.2 MMOL/L (24.0-28.0)
[2023-05-06 21:20] VITALS: BP 135/63; TEMP 97.3; O2SAT 96
[2023-05-06 21:23] LABS: BASO % 0.1 % (0.0-1.0); EOS # 0.1 10^3/uL (0.0-0.5); EOS % 0.8 % (0.0-3.0); HEMATOCRIT 27.8 % (36.0-47.0); HEMOGLOBIN 9.8 g/dl (12.0-15.5); LYMPH # 0.9 10^3/uL (1.5-5.0); LYMPH % 12.4 % (24.0-44.0); MEAN CORPUSCULAR HGB CONC 35.3 g/dl (32.0-36.5); MEAN CORPUSCULAR VOLUME 93.6 fl (80.0-96.0); MONO # 0.6 10^3/uL (0.0-0.8); NEUTROPHILS # 5.5 10^3/uL (1.5-8.5); NEUTROPHILS % 77.4 % (36.0-66.0); PLATELET COUNT, AUTOMATED 167 10^3/uL (150-450); RED BLOOD COUNT 2.97 10^6/uL (4.00-5.40); WHITE BLOOD COUNT 7.1 10^3/uL (4.0-10.0)
[2023-05-06] MEDS ORDERED: NS 250 ML IV ONE ×3 (21:45→23:30)
[2023-05-06 22:27] VITALS: BP 86/48
[2023-05-06 22:40] LABS: ALBUMIN 2.4 G/DL (3.2-5.2); ALKALINE PHOSPHATASE 76 U/L (46-116); ALT/SGPT 23 U/L (7.0-40); AST/SGOT 32 U/L (<34); BILIRUBIN,TOTAL 0.4 MG/DL (0.3-1.2); BLOOD UREA NITROGEN 21 MG/DL (9-23); CARBON DIOXIDE LEVEL 22 MMOL/L (20-31); CHLORIDE LEVEL 104 MMOL/L (98-107); CPK CREATINE PHOSPHOKINASE 871 U/L (34-145); CREATININE FOR GFR 0.48 MG/DL (0.55-1.30); GLOMERULAR FILTRATION RATE > 60.0 (>32); GLUCOSE, FASTING 310 MG/DL (74-106); PHOSPHORUS LEVEL 1.9 MG/DL (2.4-5.1); POTASSIUM SERUM 4.4 MMOL/L (3.5-5.1); SODIUM LEVEL 132 MMOL/L (136-145); TOTAL PROTEIN 5.5 G/DL (5.7-8.2)
[2023-05-06 23:23] VITALS: BP 88/42
[2023-05-06 23:58] VITALS: BP 90/44; TEMP 99.4; O2SAT 98
[2023-05-07] VITALS (10 sets, daily range): BP systolic 78–126; BP diastolic 40–59; TEMP 96–99.7; O2SAT 93–98
[2023-05-07] MEDS: PIPERACILLIN/TAZOBACTAM SOD 3.375 GM in D5W MINI-BAG PLUS 50 ML IV SCH ×5 (00:26→23:47)
[2023-05-07] MEDS ORDERED: NS 250 ML IV ONE ×2 (01:05→05:35)
[2023-05-07] MEDS ORDERED: NS 500 ML IV ONE (04:35)
[2023-05-07 06:09] LABS: BASO % 0.3 % (0.0-1.0); EOS # 0.2 10^3/uL (0.0-0.5); EOS % 2.6 % (0.0-3.0); HEMATOCRIT 25.1 % (36.0-47.0); HEMOGLOBIN 8.6 g/dl (12.0-15.5); LYMPH # 1.4 10^3/uL (1.5-5.0); LYMPH % 22.1 % (24.0-44.0); MEAN CORPUSCULAR HEMOGLOBIN 33.1 pg (27.0-33.0); MEAN CORPUSCULAR HGB CONC 34.3 g/dl (32.0-36.5); MEAN CORPUSCULAR VOLUME 96.5 fl (80.0-96.0); MONO # 0.5 10^3/uL (0.0-0.8); NEUTROPHILS # 4.1 10^3/uL (1.5-8.5); NEUTROPHILS % 66.7 % (36.0-66.0); PLATELET COUNT, AUTOMATED 147 10^3/uL (150-450); WHITE BLOOD COUNT 6.1 10^3/uL (4.0-10.0)
[2023-05-07] MEDS ORDERED: NS 1,000 ML IV SCH (06:20)
[2023-05-07 06:32] LABS: BLOOD UREA NITROGEN 17 MG/DL (9-23); CALCIUM LEVEL 7.3 MG/DL (8.3-10.6); CARBON DIOXIDE LEVEL 21 MMOL/L (20-31); CHLORIDE LEVEL 105 MMOL/L (98-107); CREATININE FOR GFR 0.49 MG/DL (0.55-1.30); GLOMERULAR FILTRATION RATE > 60.0 (>32); GLUCOSE, FASTING 167 MG/DL (74-106); MAGNESIUM LEVEL 1.7 MG/DL (1.8-2.4); POTASSIUM SERUM 3.8 MMOL/L (3.5-5.1); SODIUM LEVEL 132 MMOL/L (136-145)
[2023-05-07] MEDS ORDERED: MAGNESIUM OXIDE 400MG TAB (MAG-OX) PO ONE (07:15)
[2023-05-07 07:39] LABS: PROCALCITONIN 0.16 ng/ml
[2023-05-07] MEDS ORDERED: VANCOMYCIN HCL 750 MG, VIAL MATE ADAPTER 1 EACH in D5W 250 ML IV SCH (08:00)
[2023-05-07] MEDS: INSULIN LISPRO (NovoLOG) PER UNIT SC SCH ×4 (09:02→21:08)
[2023-05-07] MEDS: ENOXAPARIN 40MG/0.4ML SYRINGE (J1650 PER 10MG) SC SCH (09:02)
[2023-05-07] MEDS: NS 1,000 ML IV SCH (18:01)
[2023-05-08] VITALS (7 sets, daily range): BP systolic 120–144; BP diastolic 59–71; TEMP 96.8–98.9; O2SAT 95–98
[2023-05-08] MEDS: NS 1,000 ML IV SCH (03:18)
[2023-05-08] MEDS: PIPERACILLIN/TAZOBACTAM SOD 3.375 GM in D5W MINI-BAG PLUS 50 ML IV SCH ×3 (05:31→18:09)
[2023-05-08 05:43] LABS: BASO % 0.5 % (0.0-1.0); EOS # 0.2 10^3/uL (0.0-0.5); EOS % 2.7 % (0.0-3.0); HEMATOCRIT 27.6 % (36.0-47.0); HEMOGLOBIN 9.4 g/dl (12.0-15.5); LYMPH # 1.3 10^3/uL (1.5-5.0); LYMPH % 24.5 % (24.0-44.0); MEAN CORPUSCULAR HEMOGLOBIN 32.6 pg (27.0-33.0); MEAN CORPUSCULAR HGB CONC 34.1 g/dl (32.0-36.5); MEAN CORPUSCULAR VOLUME 95.8 fl (80.0-96.0); MONO # 0.5 10^3/uL (0.0-0.8); MONO % 8.8 % (2.0-8.0); NEUTROPHILS # 3.4 10^3/uL (1.5-8.5); PLATELET COUNT, AUTOMATED 166 10^3/uL (150-450); RED BLOOD COUNT 2.88 10^6/uL (4.00-5.40); WHITE BLOOD COUNT 5.5 10^3/uL (4.0-10.0)
[2023-05-08 06:09] LABS: CORTISOL AM 22.3 UG/DL (4.3-22.4)
[2023-05-08 06:10] LABS: BLOOD UREA NITROGEN 15 MG/DL (9-23); CALCIUM LEVEL 7.3 MG/DL (8.3-10.6); CARBON DIOXIDE LEVEL 22 MMOL/L (20-31); CHLORIDE LEVEL 113 MMOL/L (98-107); CREATININE FOR GFR 0.57 MG/DL (0.55-1.30); GLOMERULAR FILTRATION RATE > 60.0 (>32); GLUCOSE, FASTING 185 MG/DL (74-106); MAGNESIUM LEVEL 1.9 MG/DL (1.8-2.4); POTASSIUM SERUM 4.1 MMOL/L (3.5-5.1); SODIUM LEVEL 141 MMOL/L (136-145)
[2023-05-08] MEDS: ENOXAPARIN 40MG/0.4ML SYRINGE (J1650 PER 10MG) SC SCH (08:42)
[2023-05-08] MEDS: INSULIN LISPRO (NovoLOG) PER UNIT SC SCH ×4 (08:42→21:17)
[2023-05-08] MEDS: NYSTATIN CREAM 15GM TOP SCH ×2 (09:00→23:11)
[2023-05-08] MEDS: ASPIRIN 81MG ENTERIC TABLET PO SCH (12:21)
[2023-05-08] MEDS: PRAVASTATIN 10 MG TAB PO SCH (21:16)
[2023-05-08] MEDS: CEPHALEXIN 500 MG CAP PO SCH (21:16)
[2023-05-09 03:21] VITALS: BP 110/56; TEMP 98.8; O2SAT 95
[2023-05-09 05:38] LABS: BASO % 0.7 % (0.0-1.0); EOS # 0.2 10^3/uL (0.0-0.5); EOS % 3.4 % (0.0-3.0); HEMATOCRIT 29.8 % (36.0-47.0); HEMOGLOBIN 10.1 g/dl (12.0-15.5); LYMPH # 1.3 10^3/uL (1.5-5.0); LYMPH % 23.9 % (24.0-44.0); MEAN CORPUSCULAR HEMOGLOBIN 32.3 pg (27.0-33.0); MEAN CORPUSCULAR HGB CONC 33.9 g/dl (32.0-36.5); MEAN CORPUSCULAR VOLUME 95.2 fl (80.0-96.0); MONO # 0.5 10^3/uL (0.0-0.8); NEUTROPHILS # 3.6 10^3/uL (1.5-8.5); NEUTROPHILS % 63.6 % (36.0-66.0); PLATELET COUNT, AUTOMATED 199 10^3/uL (150-450); RED BLOOD COUNT 3.13 10^6/uL (4.00-5.40); WHITE BLOOD COUNT 5.6 10^3/uL (4.0-10.0)
[2023-05-09] MEDS: CEPHALEXIN 500 MG CAP PO SCH ×3 (05:46→20:56)
[2023-05-09 06:09] LABS: BLOOD UREA NITROGEN 12 MG/DL (9-23); CALCIUM LEVEL 7.7 MG/DL (8.3-10.6); CARBON DIOXIDE LEVEL 24 MMOL/L (20-31); CHLORIDE LEVEL 111 MMOL/L (98-107); CREATININE FOR GFR 0.48 MG/DL (0.55-1.30); GLOMERULAR FILTRATION RATE > 60.0 (>32); GLUCOSE, FASTING 205 MG/DL (74-106); POTASSIUM SERUM 4.3 MMOL/L (3.5-5.1); SODIUM LEVEL 141 MMOL/L (136-145)
[2023-05-09 07:36] VITALS: BP 154/68; TEMP 97.5; O2SAT 95
[2023-05-09] MEDS: ENOXAPARIN 40MG/0.4ML SYRINGE (J1650 PER 10MG) SC SCH (08:08)
[2023-05-09] MEDS: ASPIRIN 81MG ENTERIC TABLET PO SCH (08:08)
[2023-05-09] MEDS: INSULIN LISPRO (NovoLOG) PER UNIT SC SCH ×4 (08:08→20:56)
[2023-05-09] MEDS: NYSTATIN CREAM 15GM TOP SCH ×2 (08:09→20:41)
[2023-05-09] MEDS: FUROSEMIDE 20 MG TAB PO SCH (09:53)
[2023-05-09 11:35] VITALS: BP 121/67; TEMP 98.2; O2SAT 98
[2023-05-09 16:13] VITALS: BP 133/85; TEMP 97.9; O2SAT 100
[2023-05-09 19:49] VITALS: BP 123/58; TEMP 98; O2SAT 99
[2023-05-09] MEDS: ACETAMINOPHEN TAB 650MG DOSE (2X325MG) PO PRN (20:40)
[2023-05-09] MEDS: PRAVASTATIN 10 MG TAB PO SCH (20:40)
[2023-05-09 22:22] VITALS: BP 110/65; TEMP 97.5; O2SAT 95
[2023-05-10 05:02] VITALS: BP 141/92; TEMP 96.6; O2SAT 95
[2023-05-10] MEDS: CEPHALEXIN 500 MG CAP PO SCH (05:10)
[2023-05-10 06:05] LABS: BASO % 0.6 % (0.0-1.0); EOS # 0.2 10^3/uL (0.0-0.5); EOS % 4.2 % (0.0-3.0); HEMATOCRIT 29.7 % (36.0-47.0); HEMOGLOBIN 10.1 g/dl (12.0-15.5); LYMPH # 1.3 10^3/uL (1.5-5.0); LYMPH % 26.5 % (24.0-44.0); MEAN CORPUSCULAR HEMOGLOBIN 32.6 pg (27.0-33.0); MEAN CORPUSCULAR VOLUME 95.8 fl (80.0-96.0); MONO # 0.5 10^3/uL (0.0-0.8); MONO % 9.4 % (2.0-8.0); NEUTROPHILS % 58.9 % (36.0-66.0); PLATELET COUNT, AUTOMATED 203 10^3/uL (150-450)
[2023-05-10 06:33] LABS: BLOOD UREA NITROGEN 16 MG/DL (9-23); CALCIUM LEVEL 7.8 MG/DL (8.3-10.6); CARBON DIOXIDE LEVEL 26 MMOL/L (20-31); CHLORIDE LEVEL 108 MMOL/L (98-107); CREATININE FOR GFR 0.51 MG/DL (0.55-1.30); GLOMERULAR FILTRATION RATE > 60.0 (>32); GLUCOSE, FASTING 237 MG/DL (74-106); MAGNESIUM LEVEL 1.9 MG/DL (1.8-2.4); POTASSIUM SERUM 4.2 MMOL/L (3.5-5.1); SODIUM LEVEL 140 MMOL/L (136-145)
[2023-05-10] MEDS: ASPIRIN 81MG ENTERIC TABLET PO SCH (10:22)
[2023-05-10] MEDS: DOXYCYCLINE HYCLATE 100MG TABLET PO SCH ×2 (10:22→20:25)
[2023-05-10] MEDS: FUROSEMIDE 20 MG TAB PO SCH (10:23)
[2023-05-10] MEDS: ENOXAPARIN 40MG/0.4ML SYRINGE (J1650 PER 10MG) SC SCH (10:23)
[2023-05-10] MEDS: NYSTATIN CREAM 15GM TOP SCH ×2 (10:24→20:25)
[2023-05-10] MEDS: INSULIN LISPRO (NovoLOG) PER UNIT SC SCH ×4 (10:26→21:47)
[2023-05-10] MEDS: PRAVASTATIN 10 MG TAB PO SCH (20:25)
[2023-05-10] MEDS: ACETAMINOPHEN TAB 650MG DOSE (2X325MG) PO PRN (20:35)
[2023-05-11 04:55] VITALS: BP 134/56; TEMP 97.9; O2SAT 96
[2023-05-11 06:08] LABS: BASO % 0.5 % (0.0-1.0); EOS # 0.2 10^3/uL (0.0-0.5); HEMATOCRIT 32.2 % (36.0-47.0); LYMPH # 1.4 10^3/uL (1.5-5.0); LYMPH % 25.4 % (24.0-44.0); MEAN CORPUSCULAR HEMOGLOBIN 32.7 pg (27.0-33.0); MEAN CORPUSCULAR HGB CONC 34.2 g/dl (32.0-36.5); MEAN CORPUSCULAR VOLUME 95.8 fl (80.0-96.0); MONO # 0.4 10^3/uL (0.0-0.8); MONO % 6.9 % (2.0-8.0); NEUTROPHILS # 3.4 10^3/uL (1.5-8.5); NEUTROPHILS % 62.8 % (36.0-66.0); PLATELET COUNT, AUTOMATED 255 10^3/uL (150-450); RED BLOOD COUNT 3.36 10^6/uL (4.00-5.40); WHITE BLOOD COUNT 5.5 10^3/uL (4.0-10.0)
[2023-05-11 06:36] LABS: BLOOD UREA NITROGEN 15 MG/DL (9-23); CALCIUM LEVEL 8.1 MG/DL (8.3-10.6); CARBON DIOXIDE LEVEL 28 MMOL/L (20-31); CHLORIDE LEVEL 105 MMOL/L (98-107); CREATININE FOR GFR 0.48 MG/DL (0.55-1.30); GLOMERULAR FILTRATION RATE > 60.0 (>32); GLUCOSE, FASTING 196 MG/DL (74-106); MAGNESIUM LEVEL 1.9 MG/DL (1.8-2.4); POTASSIUM SERUM 4.1 MMOL/L (3.5-5.1); SODIUM LEVEL 137 MMOL/L (136-145)
[2023-05-11] MEDS: INSULIN LISPRO (NovoLOG) PER UNIT SC SCH ×4 (08:30→20:10)
[2023-05-11] MEDS: FUROSEMIDE 20 MG TAB PO SCH (08:31)
[2023-05-11] MEDS: NYSTATIN CREAM 15GM TOP SCH ×2 (08:31→20:11)
[2023-05-11] MEDS: ENOXAPARIN 40MG/0.4ML SYRINGE (J1650 PER 10MG) SC SCH (08:31)
[2023-05-11] MEDS: DOXYCYCLINE HYCLATE 100MG TABLET PO SCH ×2 (08:31→20:10)
[2023-05-11] MEDS: ASPIRIN 81MG ENTERIC TABLET PO SCH (08:31)
[2023-05-11] MEDS: PRAVASTATIN 10 MG TAB PO SCH (20:10)
[2023-05-11] MEDS: ACETAMINOPHEN TAB 650MG DOSE (2X325MG) PO PRN (20:11)
[2023-05-12 05:30] VITALS: BP 148/96; TEMP 98.6; O2SAT 99
[2023-05-12] MEDS: ACETAMINOPHEN TAB 650MG DOSE (2X325MG) PO PRN (05:40)
[2023-05-12] MEDS: ASPIRIN 81MG ENTERIC TABLET PO SCH (08:34)
[2023-05-12] MEDS: DOXYCYCLINE HYCLATE 100MG TABLET PO SCH ×2 (08:34→21:05)
[2023-05-12] MEDS: FUROSEMIDE 20 MG TAB PO SCH (08:34)
[2023-05-12] MEDS: INSULIN LISPRO (NovoLOG) PER UNIT SC SCH ×4 (08:35→21:00)
[2023-05-12] MEDS: ENOXAPARIN 40MG/0.4ML SYRINGE (J1650 PER 10MG) SC SCH (08:35)
[2023-05-12] MEDS: NYSTATIN CREAM 15GM TOP SCH ×2 (08:36→21:06)
[2023-05-12] MEDS: LIDOCAINE 5% (LIDODERM) PATCH TD SCH (12:24)
[2023-05-12] MEDS: diphenhydrAMINE CREAM 30GM TOP PRN (13:57)
[2023-05-12] MEDS: ANALGESIC BALM CRM 3OZ TOP PRN (13:57)
[2023-05-12 21:00] VITALS: BP 128/99; TEMP 98.2; O2SAT 98
[2023-05-12] MEDS: PRAVASTATIN 10 MG TAB PO SCH (21:06)
[2023-05-13 05:33] VITALS: BP 142/87; TEMP 98.4; O2SAT 98
[2023-05-13] MEDS: ASPIRIN 81MG ENTERIC TABLET PO SCH (08:24)
[2023-05-13] MEDS: INSULIN LISPRO (NovoLOG) PER UNIT SC SCH ×4 (08:24→20:50)
[2023-05-13] MEDS: FUROSEMIDE 20 MG TAB PO SCH (08:25)
[2023-05-13] MEDS: LIDOCAINE 5% (LIDODERM) PATCH TD SCH (08:25)
[2023-05-13] MEDS: NYSTATIN CREAM 15GM TOP SCH ×2 (08:26→20:58)
[2023-05-13] MEDS: ENOXAPARIN 40MG/0.4ML SYRINGE (J1650 PER 10MG) SC SCH (08:27)
[2023-05-13 14:00] VITALS: BP 149/86; TEMP 97.9; O2SAT 100
[2023-05-13] MEDS: METOPROLOL TART 12.5 MG PER 1/2 TAB PO SCH (20:57)
[2023-05-13] MEDS: ACETAMINOPHEN TAB 650MG DOSE (2X325MG) PO PRN (20:57)
[2023-05-13] MEDS: PRAVASTATIN 10 MG TAB PO SCH (20:57)
[2023-05-13] MEDS: LEVEMIR (INSULIN DETEMIR) 1 UNITS/0.01ML SC SCH (20:57)
[2023-05-14 01:15] VITALS: BP 112/52
[2023-05-14 06:00] VITALS: BP 133/66; TEMP 97.9; O2SAT 98
[2023-05-14 06:30] VITALS: O2SAT 96
[2023-05-14] MEDS: INSULIN LISPRO (NovoLOG) PER UNIT SC SCH ×4 (07:30→21:37)
[2023-05-14] MEDS ORDERED: ONDANSETRON 4MG TAB PO PRN (08:15)
[2023-05-14] MEDS: METOPROLOL TART 12.5 MG PER 1/2 TAB PO SCH ×2 (08:29→21:43)
[2023-05-14] MEDS: ENOXAPARIN 40MG/0.4ML SYRINGE (J1650 PER 10MG) SC SCH (08:29)
[2023-05-14] MEDS: ASPIRIN 81MG ENTERIC TABLET PO SCH (08:30)
[2023-05-14] MEDS: LIDOCAINE 5% (LIDODERM) PATCH TD SCH (08:30)
[2023-05-14] MEDS: FUROSEMIDE 20 MG TAB PO SCH (08:30)
[2023-05-14] MEDS: NYSTATIN CREAM 15GM TOP SCH ×2 (08:30→21:38)
[2023-05-14] MEDS: LEVEMIR (INSULIN DETEMIR) 1 UNITS/0.01ML SC SCH (21:37)
[2023-05-14] MEDS: PRAVASTATIN 10 MG TAB PO SCH (21:38)
[2023-05-15 06:10] VITALS: BP 117/58; TEMP 98.2; O2SAT 97
[2023-05-15] MEDS: INSULIN LISPRO (NovoLOG) PER UNIT SC SCH ×4 (07:30→21:01)
[2023-05-15] MEDS: ANALGESIC BALM CRM 3OZ TOP PRN (08:05)
[2023-05-15] MEDS: ENOXAPARIN 40MG/0.4ML SYRINGE (J1650 PER 10MG) SC SCH (08:05)
[2023-05-15] MEDS: ASPIRIN 81MG ENTERIC TABLET PO SCH (08:06)
[2023-05-15] MEDS: LIDOCAINE 5% (LIDODERM) PATCH TD SCH (08:06)
[2023-05-15] MEDS: METOPROLOL TART 12.5 MG PER 1/2 TAB PO SCH ×2 (08:06→21:02)
[2023-05-15] MEDS: FUROSEMIDE 20 MG TAB PO SCH (08:06)
[2023-05-15] MEDS: NYSTATIN CREAM 15GM TOP SCH ×2 (08:07→21:02)
[2023-05-15] MEDS: ACETAMINOPHEN TAB 650MG DOSE (2X325MG) PO PRN (08:09)
[2023-05-15] MEDS: PRAVASTATIN 10 MG TAB PO SCH (21:01)
[2023-05-15] MEDS: LEVEMIR (INSULIN DETEMIR) 1 UNITS/0.01ML SC SCH (21:01)
[2023-05-16 05:10] VITALS: BP 111/65; TEMP 97.9; O2SAT 100
[2023-05-16] MEDS: INSULIN LISPRO (NovoLOG) PER UNIT SC SCH ×4 (07:30→21:34)
[2023-05-16] MEDS: METOPROLOL TART 12.5 MG PER 1/2 TAB PO SCH ×2 (09:53→21:35)
[2023-05-16] MEDS: ASPIRIN 81MG ENTERIC TABLET PO SCH (09:53)
[2023-05-16] MEDS: FUROSEMIDE 20 MG TAB PO SCH (09:53)
[2023-05-16] MEDS: LIDOCAINE 5% (LIDODERM) PATCH TD SCH (09:54)
[2023-05-16] MEDS: ENOXAPARIN 40MG/0.4ML SYRINGE (J1650 PER 10MG) SC SCH (09:54)
[2023-05-16] MEDS: ACETAMINOPHEN TAB 650MG DOSE (2X325MG) PO PRN (09:54)
[2023-05-16] MEDS: NYSTATIN CREAM 15GM TOP SCH ×2 (09:55→21:34)
[2023-05-16] MEDS: PRAVASTATIN 10 MG TAB PO SCH (21:33)
[2023-05-16] MEDS: LEVEMIR (INSULIN DETEMIR) 1 UNITS/0.01ML SC SCH (21:34)
[2023-05-17 05:52] VITALS: BP 119/63; TEMP 97.7; O2SAT 100
[2023-05-17] MEDS: INSULIN LISPRO (NovoLOG) PER UNIT SC SCH ×4 (08:44→20:00)
[2023-05-17] MEDS: ENOXAPARIN 40MG/0.4ML SYRINGE (J1650 PER 10MG) SC SCH (08:44)
[2023-05-17] MEDS: LIDOCAINE 5% (LIDODERM) PATCH TD SCH (08:45)
[2023-05-17] MEDS: FUROSEMIDE 20 MG TAB PO SCH (08:45)
[2023-05-17] MEDS: ASPIRIN 81MG ENTERIC TABLET PO SCH (08:45)
[2023-05-17] MEDS: METOPROLOL TART 12.5 MG PER 1/2 TAB PO SCH ×2 (08:45→20:06)
[2023-05-17] MEDS: ACETAMINOPHEN TAB 650MG DOSE (2X325MG) PO PRN (08:46)
[2023-05-17] MEDS: NYSTATIN CREAM 15GM TOP SCH ×2 (08:46→20:06)
[2023-05-17] MEDS: LEVEMIR (INSULIN DETEMIR) 1 UNITS/0.01ML SC SCH (20:06)
[2023-05-17] MEDS: PRAVASTATIN 10 MG TAB PO SCH (20:06)
[2023-05-18 05:05] VITALS: BP 115/63; TEMP 97.5; O2SAT 99
[2023-05-18] MEDS: ENOXAPARIN 40MG/0.4ML SYRINGE (J1650 PER 10MG) SC SCH (10:08)
[2023-05-18] MEDS: INSULIN LISPRO (NovoLOG) PER UNIT SC SCH ×4 (10:08→20:05)
[2023-05-18] MEDS: FUROSEMIDE 20 MG TAB PO SCH (10:09)
[2023-05-18] MEDS: ASPIRIN 81MG ENTERIC TABLET PO SCH (10:09)
[2023-05-18] MEDS: LIDOCAINE 5% (LIDODERM) PATCH TD SCH (10:09)
[2023-05-18] MEDS: NYSTATIN CREAM 15GM TOP SCH ×2 (10:10→20:37)
[2023-05-18] MEDS: METOPROLOL TART 12.5 MG PER 1/2 TAB PO SCH ×2 (10:12→20:36)
[2023-05-18] MEDS: diphenhydrAMINE CREAM 30GM TOP PRN (10:24)
[2023-05-18] MEDS: ANALGESIC BALM CRM 3OZ TOP PRN (10:24)
[2023-05-18] MEDS: PRAVASTATIN 10 MG TAB PO SCH (20:35)
[2023-05-18] MEDS: LEVEMIR (INSULIN DETEMIR) 1 UNITS/0.01ML SC SCH (20:37)
[2023-05-19 04:28] VITALS: BP 125/61; TEMP 97.7; O2SAT 100
[2023-05-19] MEDS: INSULIN LISPRO (NovoLOG) PER UNIT SC SCH ×4 (09:46→21:00)
[2023-05-19] MEDS: VANICREAM MOISTURIZING SKIN CREAM 113GM TUBE TOP SCH (11:14)
[2023-05-19] MEDS: LIDOCAINE 5% (LIDODERM) PATCH TD SCH (11:14)
[2023-05-19] MEDS: ENOXAPARIN 40MG/0.4ML SYRINGE (J1650 PER 10MG) SC SCH (11:15)
[2023-05-19] MEDS: ASPIRIN 81MG ENTERIC TABLET PO SCH (11:15)
[2023-05-19] MEDS: FUROSEMIDE 20 MG TAB PO SCH (11:15)
[2023-05-19] MEDS: METOPROLOL TART 12.5 MG PER 1/2 TAB PO SCH ×2 (11:16→21:24)
[2023-05-19] MEDS: NYSTATIN CREAM 15GM TOP SCH ×2 (11:17→21:21)
[2023-05-19] MEDS: ANALGESIC BALM CRM 3OZ TOP PRN (11:19)
[2023-05-19] MEDS: LEVEMIR (INSULIN DETEMIR) 1 UNITS/0.01ML SC SCH (21:19)
[2023-05-19] MEDS: PRAVASTATIN 10 MG TAB PO SCH (21:35)
[2023-05-20 06:00] VITALS: BP 137/66; TEMP 97.7; O2SAT 99
[2023-05-20] MEDS: ACETAMINOPHEN TAB 650MG DOSE (2X325MG) PO PRN (06:21)
[2023-05-20] MEDS: INSULIN LISPRO (NovoLOG) PER UNIT SC SCH ×4 (07:05→20:21)
[2023-05-20] MEDS: METOPROLOL TART 12.5 MG PER 1/2 TAB PO SCH ×2 (08:44→20:24)
[2023-05-20] MEDS: FUROSEMIDE 20 MG TAB PO SCH (08:44)
[2023-05-20] MEDS: ASPIRIN 81MG ENTERIC TABLET PO SCH (08:44)
[2023-05-20] MEDS: ENOXAPARIN 40MG/0.4ML SYRINGE (J1650 PER 10MG) SC SCH (08:45)
[2023-05-20] MEDS: LIDOCAINE 5% (LIDODERM) PATCH TD SCH (08:45)
[2023-05-20] MEDS: VANICREAM MOISTURIZING SKIN CREAM 113GM TUBE TOP SCH (08:45)
[2023-05-20] MEDS: NYSTATIN CREAM 15GM TOP SCH ×2 (08:45→20:25)
[2023-05-20] MEDS: LEVEMIR (INSULIN DETEMIR) 1 UNITS/0.01ML SC SCH (20:22)
[2023-05-20] MEDS: PRAVASTATIN 10 MG TAB PO SCH (20:28)
[2023-05-21 06:00] VITALS: BP 103/51; TEMP 97.5; O2SAT 99
[2023-05-21] MEDS: INSULIN LISPRO (NovoLOG) PER UNIT SC SCH ×4 (07:52→21:00)
[2023-05-21] MEDS: ASPIRIN 81MG ENTERIC TABLET PO SCH (07:52)
[2023-05-21] MEDS: METOPROLOL TART 12.5 MG PER 1/2 TAB PO SCH ×2 (07:57→21:06)
[2023-05-21] MEDS: FUROSEMIDE 20 MG TAB PO SCH (07:59)
[2023-05-21] MEDS: LIDOCAINE 5% (LIDODERM) PATCH TD SCH (07:59)
[2023-05-21] MEDS: ENOXAPARIN 40MG/0.4ML SYRINGE (J1650 PER 10MG) SC SCH (07:59)
[2023-05-21] MEDS: VANICREAM MOISTURIZING SKIN CREAM 113GM TUBE TOP SCH (08:00)
[2023-05-21] MEDS: NYSTATIN CREAM 15GM TOP SCH ×2 (08:00→21:04)
[2023-05-21] MEDS: ACETAMINOPHEN TAB 650MG DOSE (2X325MG) PO PRN (08:09)
[2023-05-21] MEDS: LEVEMIR (INSULIN DETEMIR) 1 UNITS/0.01ML SC SCH (21:04)
[2023-05-21] MEDS: PRAVASTATIN 10 MG TAB PO SCH (21:04)
[2023-05-22] MEDS: ACETAMINOPHEN TAB 650MG DOSE (2X325MG) PO PRN ×2 (03:48→20:52)
[2023-05-22] MEDS: ANALGESIC BALM CRM 3OZ TOP PRN (03:49)
[2023-05-22 05:16] VITALS: BP 119/50; TEMP 97.5; O2SAT 99
[2023-05-22] MEDS: INSULIN LISPRO (NovoLOG) PER UNIT SC SCH ×4 (07:43→20:48)
[2023-05-22] MEDS: NYSTATIN CREAM 15GM TOP SCH ×2 (08:20→20:50)
[2023-05-22] MEDS: VANICREAM MOISTURIZING SKIN CREAM 113GM TUBE TOP SCH (08:20)
[2023-05-22] MEDS: LIDOCAINE 5% (LIDODERM) PATCH TD SCH (08:21)
[2023-05-22] MEDS: ASPIRIN 81MG ENTERIC TABLET PO SCH (08:21)
[2023-05-22] MEDS: FUROSEMIDE 20 MG TAB PO SCH ×2 (08:21→12:29)
[2023-05-22] MEDS: ENOXAPARIN 40MG/0.4ML SYRINGE (J1650 PER 10MG) SC SCH (08:21)
[2023-05-22] MEDS: METOPROLOL TART 12.5 MG PER 1/2 TAB PO SCH ×2 (08:25→20:47)
[2023-05-22 20:40] VITALS: O2SAT 97
[2023-05-22] MEDS: PRAVASTATIN 10 MG TAB PO SCH (20:47)
[2023-05-22] MEDS: LEVEMIR (INSULIN DETEMIR) 1 UNITS/0.01ML SC SCH (20:49)
[2023-05-23 02:48] VITALS: O2SAT 97
[2023-05-23] MEDS: ACETAMINOPHEN TAB 650MG DOSE (2X325MG) PO PRN (05:05)
[2023-05-23 05:08] VITALS: BP 126/58; TEMP 97.5; O2SAT 98
[2023-05-23] MEDS: INSULIN LISPRO (NovoLOG) PER UNIT SC SCH ×2 (08:03→12:02)
[2023-05-23 08:04] VITALS: BP 126/58
[2023-05-23] MEDS: METOPROLOL TART 12.5 MG PER 1/2 TAB PO SCH (08:04)
[2023-05-23] MEDS: ASPIRIN 81MG ENTERIC TABLET PO SCH (08:04)
[2023-05-23] MEDS: LIDOCAINE 5% (LIDODERM) PATCH TD SCH (08:04)
[2023-05-23] MEDS: ENOXAPARIN 40MG/0.4ML SYRINGE (J1650 PER 10MG) SC SCH (08:04)
[2023-05-23] MEDS: VANICREAM MOISTURIZING SKIN CREAM 113GM TUBE TOP SCH (08:05)
[2023-05-23] MEDS: FUROSEMIDE 20 MG TAB PO SCH (08:05)
[2023-05-23] MEDS: diphenhydrAMINE CREAM 30GM TOP PRN (08:06)
[2023-05-23] MEDS: NYSTATIN CREAM 15GM TOP SCH (08:06)
[2023-05-23] MEDS ORDERED: TOPR25TA PO (11:49)
== END 2023-05-23 13:04 | DRG 607 ==
LOC: EDBD 12:52 → M ED 12:52 → M ED INP 16:54 → M PCU 18:05 → M MSPAV 05-09 22:12
PROVIDERS: ADMIT Internal Medicine; ATTEND Internal Medicine
PROC: B246ZZZ Ultrasonography of Right and Left Heart (ICD-10-PCS; principal; 2023-05-07)
DX: L30.8 Other specified dermatitis (principal); I47.10 Supraventricular tachycardia, unspecified; I50.32 Chronic diastolic (congestive) heart failure; J45.909 Unspecified asthma, uncomplicated; L53.9 Erythematous condition, unspecified; K21.9 Gastro-esophageal reflux disease without esophagitis; I11.0 Hypertensive heart disease with heart failure; E78.5 Hyperlipidemia, unspecified; M81.0 Age-related osteoporosis without current pathological fracture; D64.9 Anemia, unspecified; E11.9 Type 2 diabetes mellitus without complications; R54 Age-related physical debility; L89.159 Pressure ulcer of sacral region, unspecified stage; B91 Sequelae of poliomyelitis; R26.89 Other abnormalities of gait and mobility; M21.372 Foot drop, left foot; I95.9 Hypotension, unspecified; R21 Rash and other nonspecific skin eruption; H40.9 Unspecified glaucoma; Z66 Do not resuscitate; Z96.653 Presence of artificial knee joint, bilateral; Z98.41 Cataract extraction status, right eye; Z98.42 Cataract extraction status, left eye; Z79.84 Long term (current) use of oral hypoglycemic drugs; Z79.899 Other long term (current) drug therapy; Z88.5 Allergy status to narcotic agent; Z88.6 Allergy status to analgesic agent; Z88.8 Allergy status to other drugs, medicaments and biological substances; Z91.040 Latex allergy status; Z91.041 Radiographic dye allergy status